=== PATIENT | female | born 1950 | race Caucasian/White ===

== ENCOUNTER 2020-02-19 09:57 | Emergency (ER) | payer OTHER ==
[~2020-02-19] VITALS: Ht 154.9 cm; Wt 59.0 kg
[2020-02-19] VITALS (8 sets, daily range): BP systolic 107–134; BP diastolic 58–69
[~2020-02-19 09:57] MED LIST: DICLOFENAC SOD75 MG PO; KLOR-CON M2020 MEQ PO; LISINOPRIL/HCTZ1 TA2 PO; SYNTHROID,LEVO88 MCG PO
[2020-02-19 10:48] LABS: MEAN CELL VOLUME 92.5 fl (81.0-99.0); MEAN CORPUSCULAR HGB 29.2 pg (27.0-31.0); MEAN CORPUSCULAR HGB CONC 31.6 g/dl (33.0-37.0); MEAN PLATELET VOLUME 11.5 fl (9.6-12.3); PLATELET COUNT AUTOMATED 447 10*3/uL (130-400); RED BLOOD COUNT 3.46 10*6/uL (4.10-5.10); RED CELL DISTRI WIDTH 15.7 % (0-14.5); WHITE BLOOD COUNT 9.5 10*3/uL (4.8-10.8)
[2020-02-19 10:51] LABS: ALBUMIN 2.6 gm/dl (3.1-4.5); CREATININE 1.13 mg/dL (0.55-1.02); TOTAL PROTEIN 6.4 gm/dL (6.4-8.2)
[2020-02-19 11:05] LABS: BASOPHILS 1 % (0-1); PLATELET SUFFICIENCY HIGH (NORMAL); TOTAL CELLS COUNTED 100 #CELLS
[2020-02-19 14:42] LABS: ALBUMIN 2.3 gm/dl (3.1-4.5); ALKALINE PHOSPHATASE 89 U/L (45-117); BUN 23 mg/dl (7-24); CHLORIDE 107 mmol/L (98-107); CREATININE 0.95 mg/dL (0.55-1.02); SGOT/AST 9 IU/L (3-35); SGPT/ALT 11 U/L (12-78); SODIUM 141 mmol/L (136-145); TOTAL PROTEIN 5.7 gm/dL (6.4-8.2)
[2020-02-19 14:49] LABS: POTASSIUM 2.4 mmol/L (3.5-5.1)
[2020-02-19] MEDS ORDERED: POTASSIUM CHLO10 ME4 PO (21:03)
[2020-02-20] MEDS ORDERED: POTASSIUM CHLO20 ME3 PO (17:31)
== END 2020-02-19 21:23 | disposition home or self-care (01) ==
LOC: ED 09:57 → EDHOLD 20:33 → ED 20:33 → EDHOLD 20:44 → 5E 20:44 → ED 21:23
PROVIDERS: Physician Assistant
DX: E87.6 Hypokalemia (principal); I10 Essential (primary) hypertension; Z79.899 Other long term (current) drug therapy

== ENCOUNTER → 2020-02-20 | Outpatient (CLI) | payer OTHER ==
[~2020-02-20] MED LIST changes: +POTASSIUM CHLO10 ME4 PO; +POTASSIUM CHLO20 ME3 PO
== END | disposition home or self-care (01) ==
LOC: LAB 08:20
DX: E87.6 Hypokalemia (principal)

== ENCOUNTER 2023-10-04 09:39 | Emergency (ER) | payer OTHER, MEDICARE ==
[~2023-10-04] VITALS: Ht 152.4 cm; Wt 73.5 kg
[2023-10-04] MEDS ORDERED: MELOXICAM15 MG PO (11:58)
== END 2023-10-04 12:06 | disposition home or self-care (01) ==
LOC: ED 09:39
DX: R07.81 Pleurodynia (principal); R51.9 Headache, unspecified; E87.6 Hypokalemia; I10 Essential (primary) hypertension; Z98.890 Other specified postprocedural states; V89.2XXA Person injured in unspecified motor-vehicle accident, traffic, initial encounter; Y93.89 Activity, other specified; Y92.410 Unspecified street and highway as the place of occurrence of the external cause; Y99.8 Other external cause status

== ENCOUNTER 2023-10-21 01:18 | Emergency (ER) | payer MEDICARE ==
[~2023-10-21] VITALS: Ht 154.9 cm; Wt 72.6 kg
[~2023-10-21 01:18] MED LIST changes: +MELOXICAM15 MG PO
[2023-10-21] MEDS ORDERED: SODIUM CHLORIDE 0.9% 1,000 ML IV ONE (01:45)
[2023-10-21] MEDS ORDERED: IOHEXOL 300 MG/ML 100 ML VIAL IV ONE (01:50)
[2023-10-21 02:24] LABS: ACT PARTIAL THROMBO TIME 23.9 SECONDS (20.0-32.1)
[2023-10-21 02:28] LABS: BUN 22 mg/dl (9-23); CHLORIDE 103 mmol/L (98-107); HEMATOCRIT 32.8 % (37.0-47.0); MANUAL DIFF REFLEX YES; MEAN CELL VOLUME 114.7 fl (81.0-99.0); MEAN CORPUSCULAR HGB 37.8 pg (27.0-31.0); MEAN CORPUSCULAR HGB CONC 32.9 g/dl (33.0-37.0); MEAN PLATELET VOLUME 11.4 fl (9.6-12.3); NUCLEATED RED BLOOD CELL 0.3 % (0.0-0.0); PLATELET COUNT AUTOMATED 251 10*3/uL (130-400); POTASSIUM 3.6 mmol/L (3.4-5.1); RED BLOOD COUNT 2.86 10*6/uL (4.10-5.10); RED CELL DISTRI WIDTH 14.4 % (0-14.5); WHITE BLOOD COUNT 6.2 10*3/uL (4.8-10.8)
[2023-10-21 02:35] LABS: BASOPHILS 1 % (0-1); PLATELET SUFFICIENCY NORMAL (NORMAL); TOTAL CELLS COUNTED 100 #CELLS
[2023-10-21 02:36] LABS: ROULEAUX SLIGHT; SPHEROCYTES FEW
== END 2023-10-21 04:18 | disposition home or self-care (01) ==
LOC: ED 01:18
PROVIDERS: Internal Medicine
DX: K92.1 Melena (principal); I10 Essential (primary) hypertension; E87.6 Hypokalemia; Z98.890 Other specified postprocedural states

== ENCOUNTER 2025-05-31 14:29 | Inpatient (IN) | payer MEDICARE ==
[~2025-05-31] VITALS: Ht 154.9 cm; Wt 77.2 kg
[2025-05-31 14:57] VITALS: BP 103/88
[2025-05-31] MEDS ORDERED: SODIUM CHLORIDE 0.9% 1,000 ML IV ONE ×2 (15:20→16:30)
[2025-05-31 15:45] LABS: BILIRUBIN Negative (Negative); BLOOD 1+ (Negative); CLARITY Cloudy (Clear); COLOR Yellow (Yellow); KETONE 1+ (Negative); LEUKO ESTERASE 2+ (Negative); NITRITE Negative (Negative); PH 6.0 (4.5-8.0); SPECIFIC GRAVITY 1.020 (1.001-1.030); UROBILINOGEN 1.0 E.U./dl (0.0-1.0)
[2025-05-31 16:14] LABS: BACTERIA 1+; EPITHELIAL CELLS 21-30; FINE GRANULAR CAST 0-2; HYALINE CAST 0-2; WBC 31-40 wbc/hpf (0-5)
[2025-05-31 16:15] LABS: MUCOUS 1+
[2025-05-31 16:17] LABS: MEAN CELL VOLUME 116.4 fl (81.0-99.0); MEAN CORPUSCULAR HGB 40.1 pg (27.0-31.0); MEAN PLATELET VOLUME 12.6 fl (9.6-12.3); NUCLEATED RED BLOOD CELL 0.0 % (0.0-0.0); NUCLEATED RED BLOOD CELL 0.0 10*3/uL (0.0-0.0); PLATELET COUNT AUTOMATED 171 10*3/uL (130-400); RED CELL DISTRI WIDTH 21.3 % (0-14.5)
[2025-05-31 16:23] LABS: MANUAL DIFF REFLEX YES
[2025-05-31 16:34] LABS: BUN 21.0 mg/dl (9-23)
[2025-05-31] MEDS ORDERED: IOHEXOL 300 MG/ML 100 ML VIAL IV ONE (16:40)
[2025-05-31 16:58] LABS: PLATELET SUFFICIENCY NORMAL (NORMAL)
[2025-05-31 17:00] LABS: STOMATOCYTE FEW
[2025-05-31] MEDS ORDERED: MAGNESIUM SULFATE 50 ML IV ONE (18:20)
[2025-05-31] MEDS ORDERED: BACTRIM DS 8001 EACH PO (19:20)
[2025-05-31] MEDS ORDERED: OXYBUTYNIN10 MG PO (19:21)
[2025-05-31] MEDS ORDERED: ESTRACE 0.01%42.5 GM V (19:21)
[2025-05-31] MEDS ORDERED: COMPAZINE10 M1 PO (19:22)
[2025-05-31] MEDS ORDERED: DULOXETINE HCL60 MG PO (19:22)
[2025-05-31] MEDS ORDERED: VITAMIN C500 M7 PO (19:24)
[2025-05-31] MEDS ORDERED: SLOW-MAG71.5 MG PO (19:24)
[2025-05-31] MEDS ORDERED: ASPIRIN81 M3 PO (19:25)
[2025-05-31] MEDS ORDERED: PHARMASSURE VI100 MG PO (19:26)
[2025-05-31] MEDS ORDERED: METOPROLOL SUCC25 M2 PO (19:26)
[2025-05-31] MEDS ORDERED: LEVOXYL88 MCG PO (19:27)
[2025-05-31] MEDS ORDERED: LISINOPRIL-HCT1 EACH PO (19:28)
[2025-05-31] MEDS ORDERED: ACETAMINOPHEN 650 MG SUPP R PRN (21:55)
[2025-05-31] MEDS ORDERED: Ondansetron Hydrochloride 4 MG/2 ML VIAL IV PRN (21:55)
[2025-05-31] MEDS ORDERED: ACETAMINOPHEN 325 MG TAB PO PRN (21:55)
[2025-05-31] MEDS ORDERED: BISACODYL 10 MG SUPP R PRN (21:55)
[2025-05-31] MEDS ORDERED: Acetaminophen/Hydrocodone 5 MG/325 MG TABLET PO PRN (21:55)
[2025-05-31] MEDS ORDERED: BISACODYL 5 MG TAB PO PRN (21:55)
[2025-05-31 23:00] VITALS: BP 140/65
[2025-06-01] VITALS: BP 120/54
[2025-06-01 06:20] LABS: MEAN CELL VOLUME 115.5 fl (81.0-99.0); MEAN CORPUSCULAR HGB 39.5 pg (27.0-31.0); MEAN PLATELET VOLUME 12.8 fl (9.6-12.3); NUCLEATED RED BLOOD CELL 0.1 10*3/uL (0.0-0.0); NUCLEATED RED BLOOD CELL 0.2 % (0.0-0.0); PLATELET COUNT AUTOMATED 144 10*3/uL (130-400); RED CELL DISTRI WIDTH 21.3 % (0-14.5)
[2025-06-01 06:48] LABS: MANUAL DIFF REFLEX YES
[2025-06-01 06:54] LABS: VITAMIN D, 25-HYDROXY 41.6 ng/mL (30-100)
[2025-06-01 07:04] LABS: BUN 16 mg/dl (9-23); FREE T4 1.27 ng/dl (0.89-1.76); LDL CHOLESTEROL 47 mg/dL (9-159); SGPT/ALT 54 U/L (5-49)
[2025-06-01 07:25] LABS: VACUOLATION OF NEUTROPHILS SLIGHT
[2025-06-01 07:26] LABS: PLATELET SUFFICIENCY NORMAL (NORMAL)
[2025-06-01 08:00] VITALS: BP 134/65
[2025-06-01] MEDS ORDERED: FOLIC ACID 0.4 MG TAB PO SCH (10:00)
[2025-06-01 16:00] VITALS: BP 136/81
[2025-06-01 20:00] VITALS: BP 130/54
[2025-06-01 23:42] VITALS: BP 118/71; BP 130/67
[2025-06-02 06:18] LABS: BUN 13 mg/dl (9-23)
[2025-06-02 06:32] LABS: MEAN CELL VOLUME 115.2 fl (81.0-99.0); MEAN CORPUSCULAR HGB 39.4 pg (27.0-31.0); MEAN PLATELET VOLUME 13.3 fl (9.6-12.3); NUCLEATED RED BLOOD CELL 0.4 10*3/uL (0.0-0.0); NUCLEATED RED BLOOD CELL 1.3 % (0.0-0.0); PLATELET COUNT AUTOMATED 145 10*3/uL (130-400); RED CELL DISTRI WIDTH 21.2 % (0-14.5)
[2025-06-02 06:38] LABS: MANUAL DIFF REFLEX YES
[2025-06-02 07:12] LABS: PLATELET SUFFICIENCY NORMAL (NORMAL)
[2025-06-02 08:36] VITALS: BP 126/65
[2025-06-02] MEDS ORDERED: OMNICEF300 MG PO (10:31)
[2025-06-02 11:40] VITALS: BP 129/73
== END 2025-06-02 13:54 | disposition home health service (06) | DRG 689 ==
LOC: ED 14:29 → EDHOLD 20:43 → 5E 20:43
PROVIDERS: Emergency Medicine; Student in an Organized Health Care Education/Training Program; ADMIT Student in an Organized Health Care Education/Training Program; ATTEND Student in an Organized Health Care Education/Training Program
DX: N30.01 Acute cystitis with hematuria (principal); G93.41 Metabolic encephalopathy; E87.20 Acidosis, unspecified; E87.1 Hypo-osmolality and hyponatremia; D53.9 Nutritional anemia, unspecified; E03.9 Hypothyroidism, unspecified; I10 Essential (primary) hypertension; E83.42 Hypomagnesemia; D72.828 Other elevated white blood cell count; D72.829 Elevated white blood cell count, unspecified; B96.1 Klebsiella pneumoniae [K. pneumoniae] as the cause of diseases classified elsewhere; L89.890 Pressure ulcer of other site, unstageable; G62.9 Polyneuropathy, unspecified; Z90.710 Acquired absence of both cervix and uterus; Z90.81 Acquired absence of spleen; Z51.11 Encounter for antineoplastic chemotherapy; Z90.722 Acquired absence of ovaries, bilateral; Z82.3 Family history of stroke; Z83.3 Family history of diabetes mellitus; Z82.0 Family history of epilepsy and other diseases of the nervous system; Z79.899 Other long term (current) drug therapy; Z79.01 Long term (current) use of anticoagulants; Z79.2 Long term (current) use of antibiotics